=== PATIENT | female | born 1995 | race African-American/Black ===

== ENCOUNTER 2017-05-20 20:15 | Emergency (ER) | payer OTHER ==
[~2017-05-20] VITALS: Ht 152.4 cm; Wt 56.7 kg
[~2017-05-20 20:15] MED LIST: CHATEAL1 EACH PO; ERYTHROMYCIN E3.5 G1 OPHTHALMIC; MACROBID 100 M100 M1 PO; ZANTAC 150MG T150 MG PO
[2017-05-20 20:44] LABS: URINE BILIRUBIN NEGATIVE (Negative); URINE BLOOD NEGATIVE (Negative); URINE COLOR YELLOW; URINE GLUCOSE-RANDOM* NEGATIVE (Negative); URINE KETONES NEGATIVE (Negative); URINE NITRITE NEGATIVE (Negative); URINE PROTEIN (DIPSTICK) NEGATIVE (Negative); URINE SPECIFIC GRAVITY >= 1.030 (1.003-1.035); URINE UROBILINOGEN 0.2 E.U./dl (0.2-1.0)
[2017-05-20] MEDS ORDERED: FLAGYL500 MG PO (21:07)
[2017-05-20 21:27] VITALS: BP 124/80
== END 2017-05-20 21:31 | disposition home or self-care (01) ==
LOC: ER 20:15
PROVIDERS: Emergency Medicine
DX: N76.0 Acute vaginitis (principal)

== ENCOUNTER 2017-05-27 19:07 | Emergency (ER) | payer OTHER ==
[~2017-05-27] VITALS: Ht 162.6 cm; Wt 52.2 kg
[2017-05-27 19:07] VITALS: BP 132/81
[~2017-05-27 19:07] MED LIST changes: +FLAGYL500 MG PO
[2017-05-27 19:41] LABS: URINE BILIRUBIN NEGATIVE (Negative); URINE BLOOD TRACE (Negative); URINE COLOR YELLOW; URINE GLUCOSE-RANDOM* NEGATIVE (Negative); URINE KETONES TRACE (Negative); URINE NITRITE NEGATIVE (Negative); URINE PROTEIN (DIPSTICK) TRACE (Negative); URINE SPECIFIC GRAVITY >= 1.030 (1.003-1.035); URINE UROBILINOGEN 0.2 E.U./dl (0.2-1.0)
[2017-05-27 19:50] LABS: BACTERIA >30 Many /HPF (None Seen); CASTS None Seen /LPF (None Seen); CRYSTALS None Seen /LPF (None Seen); SQUAMOUS >10 Many /LPF (0-3); URINE RBC None Seen /HPF (0-2); URINE WBC >25 Many /HPF (0-5)
[2017-05-27] MEDS ORDERED: GYNE-LOTRIMIN-745 GM VG (20:00)
[2017-05-27] MEDS ORDERED: KEFLEX500 MG PO (20:00)
[2017-05-29 17:13] LABS: CHLAMYDIA TRACHOMATIS-PCR Negative (Negative); NEISSERIA GONORRHEA-PCR Negative (Negative)
== END 2017-05-27 20:13 | disposition home or self-care (01) ==
LOC: ER 19:07
PROVIDERS: Physician Assistant
DX: O98.819 Other maternal infectious and parasitic diseases complicating pregnancy, unspecified trimester (principal); O23.40 Unspecified infection of urinary tract in pregnancy, unspecified trimester; Z3A.00 Weeks of gestation of pregnancy not specified

== ENCOUNTER 2018-08-29 23:13 | Emergency (ER) | payer OTHER ==
[~2018-08-29] VITALS: Ht 152.4 cm; Wt 63.5 kg
[~2018-08-29 23:13] MED LIST changes: +DIFLUCAN200 MG PO; +GYNE-LOTRIMIN-745 GM VG; +KEFLEX500 MG PO; +ZOFRAN ODT4 MG DISSOLVE
[2018-08-30 00:52] VITALS: BP 111/76
== END 2018-08-30 00:50 | disposition home or self-care (01) ==
LOC: ER 23:13
DX: Z20.2 Contact with and (suspected) exposure to infections with a predominantly sexual mode of transmission (principal)

== ENCOUNTER 2018-09-03 12:47 | Emergency (ER) | payer OTHER ==
[~2018-09-03] VITALS: Ht 152.4 cm; Wt 62.6 kg
[2018-09-03 13:04] LABS: URINE BILIRUBIN NEGATIVE (Negative); URINE BLOOD NEGATIVE (Negative); URINE CLARITY CLEAR; URINE COLOR YELLOW; URINE GLUCOSE-RANDOM* NEGATIVE (Negative); URINE KETONES NEGATIVE (Negative); URINE LEUKOCYTES-REFLEX NEGATIVE (Negative); URINE NITRITE-REFLEX NEGATIVE (Negative); URINE PROTEIN (DIPSTICK) NEGATIVE (Negative); URINE SPECIFIC GRAVITY >= 1.030 (1.005-1.035); URINE UROBILINOGEN 0.2 E.U./dl (0.2-1.0)
[2018-09-03] MEDS ORDERED: FLAGYL500 M1 PO (14:27)
[2018-09-03] MEDS ORDERED: DOXYCYCLINE 10100 MG PO (14:27)
[2018-09-03 14:40] VITALS: BP 112/78
== END 2018-09-03 14:45 | disposition home or self-care (01) ==
LOC: ER 12:47
PROVIDERS: Physician Assistant
DX: Z20.2 Contact with and (suspected) exposure to infections with a predominantly sexual mode of transmission (principal); N76.0 Acute vaginitis

== ENCOUNTER 2018-10-02 05:56 | Emergency (ER) | payer OTHER ==
[~2018-10-02] VITALS: Ht 152.4 cm; Wt 59.0 kg
[~2018-10-02 05:56] MED LIST changes: +DOXYCYCLINE 10100 MG PO; +FLAGYL500 M1 PO
[2018-10-02 06:04] VITALS: BP 122/74
== END 2018-10-02 07:11 | disposition home or self-care (01) ==
LOC: ER 05:56
PROVIDERS: Emergency Medicine
DX: Z20.2 Contact with and (suspected) exposure to infections with a predominantly sexual mode of transmission (principal)

== ENCOUNTER 2019-08-31 08:51 | Emergency (ER) | payer OTHER ==
[~2019-08-31] VITALS: Ht 152.4 cm; Wt 63.5 kg
[2019-08-31 09:53] VITALS: BP 132/78
== END 2019-08-31 10:28 | disposition home or self-care (01) ==
LOC: ER 08:51
DX: J36 Peritonsillar abscess (principal)

== ENCOUNTER 2020-07-31 10:43 | Emergency (ER) | payer OTHER ==
[~2020-07-31] VITALS: Ht 152.4 cm; Wt 70.8 kg
[2020-07-31 10:47] VITALS: BP 121/78
[2020-07-31] MEDS ORDERED: KEFLEX500 M1 PO (11:21)
== END 2020-07-31 12:18 | disposition home or self-care (01) ==
LOC: ER 10:43
DX: T23.271A Burn of second degree of right wrist, initial encounter (principal); X08.8XXA Exposure to other specified smoke, fire and flames, initial encounter; Y93.89 Activity, other specified; Y92.89 Other specified places as the place of occurrence of the external cause; Y99.8 Other external cause status

== ENCOUNTER 2020-10-15 05:21 | Emergency (ER) | payer OTHER ==
[~2020-10-15] VITALS: Ht 152.4 cm; Wt 72.1 kg
[~2020-10-15 05:21] MED LIST changes: +KEFLEX500 M1 PO
[2020-10-15 05:30] VITALS: BP 141/95
[2020-10-15] MEDS ORDERED: DOXYCYCLINE 10100 MG PO (05:38)
[2020-10-15] MEDS ORDERED: ZITHROMAX500 MG PO (05:45)
== END 2020-10-15 05:44 | disposition home or self-care (01) ==
LOC: ER 05:21
DX: A74.89 Other chlamydial diseases (principal)